=== PATIENT | female | born 1980 | race African-American/Black ===

== ENCOUNTER 2020-03-30 01:41 | Emergency (ER) | payer MEDICAID ==
[~2020-03-30] VITALS: Ht 157.5 cm; Wt 110.0 kg
[2020-03-30] MEDS ORDERED: IBUPROFEN 600MG TABLET PO STA (02:16)
[2020-03-30] MEDS ORDERED: BACITRACIN ZINC OINT UDPKT TOP ONE (02:30)
[2020-03-30] MEDS ORDERED: LIDOCAINE HCL/PF 1% 10 MG/ML 5ML VIAL IJ ONE (02:30)
[2020-03-30] MEDS ORDERED: TETANUS, DIPHTHERIA, PERTUSSIS VAC/PF 0.5ML (>7YR OLD) IM ONE (02:30)
[2020-03-30 06:16] VITALS: BP 124/77
== END 2020-03-30 06:16 | disposition home or self-care (01) ==
LOC: ER 01:41
DX: S91.312A Laceration without foreign body, left foot, initial encounter (principal); W25.XXXA Contact with sharp glass, initial encounter; Y93.01 Activity, walking, marching and hiking; Y92.89 Other specified places as the place of occurrence of the external cause; Z23 Encounter for immunization
CPT/HCPCS: 73630; 90471; 99283; J3490; 99284

== ENCOUNTER 2020-03-31 18:39 | Emergency (ER) | payer MEDICAID ==
[~2020-03-31] VITALS: Ht 157.5 cm; Wt 110.5 kg
[2020-03-31] MEDS ORDERED: ACETAMINOPHEN 325MG TABLET PO ONE (19:15)
[2020-03-31 20:33] LABS: CLARITY URINE CLEAR (CLEAR); COLOR URINE YELLOW (YELLOW); KETONES URINE NEGATIVE (NEGATIVE); LEUKOCYTE ESTERASE URINE NEGATIVE (NEGATIVE); NITRITE URINE NEGATIVE (NEGATIVE); OCCULT BLOOD URINE 3+ (NEGATIVE); PROTEIN URINE NEGATIVE (NEGATIVE); SPECIFIC GRAVITY URINE 1.012 (1.005-1.030)
[2020-03-31 21:45] VITALS: BP 130/78
== END 2020-03-31 21:49 | disposition home or self-care (01) ==
LOC: ER 18:39
DX: L03.114 Cellulitis of left upper limb (principal)
CPT/HCPCS: 71045; 81003; 81025; 99284

== ENCOUNTER 2020-04-02 07:40 | Emergency (ER) | payer MEDICAID ==
[~2020-04-02] VITALS: Ht 160 cm; Wt 109.0 kg
[2020-04-02 07:44] VITALS: BP 128/83
[2020-04-02] MEDS ORDERED: CEPHALEXIN 250MG CAPSULE PO ONE (08:15)
== END 2020-04-02 09:37 | disposition home or self-care (01) ==
LOC: ER 07:54
DX: Z48.00 Encounter for change or removal of nonsurgical wound dressing (principal); L03.114 Cellulitis of left upper limb; R03.0 Elevated blood-pressure reading, without diagnosis of hypertension; Z88.0 Allergy status to penicillin
CPT/HCPCS: 99283

== ENCOUNTER 2020-04-15 15:22 | Emergency (ER) | payer MEDICAID ==
[~2020-04-15] VITALS: Ht 165.1 cm; Wt 146.0 kg
[2020-04-15 15:25] VITALS: BP 126/88
== END 2020-04-15 17:42 | disposition home or self-care (01) ==
LOC: ER 15:22
DX: S91.312D Laceration without foreign body, left foot, subsequent encounter (principal); Z48.02 Encounter for removal of sutures; X58.XXXD Exposure to other specified factors, subsequent encounter
CPT/HCPCS: 99281